=== PATIENT | female | born 1995 | race Caucasian/White ===

== ENCOUNTER → 2018-09-08 | Outpatient (CLI) | payer BC | LOC: COL.RAD 17:12 | DX: M25.571 Pain in right ankle and joints of right foot (principal) ==

== ENCOUNTER 2018-10-06 15:45 | Outpatient (RCR) | payer BC | END 2018-12-23 | disposition home or self-care (01) | LOC: MKS.ESL.PT | DX: M25.571 Pain in right ankle and joints of right foot (principal) ==

== ENCOUNTER 2020-09-18 21:58 | Emergency (ER) | payer BC ==
[~2020-09-18] VITALS: Ht 162.6 cm; Wt 72.7 kg
[2020-09-18 22:08] VITALS: TEMP 97.1
[2020-09-18 23:40] VITALS: BP 104/58; PULSE 71
== END 2020-09-18 23:42 | disposition home or self-care (01) ==
LOC: COL.ER 21:58
DX: T78.1XXA Other adverse food reactions, not elsewhere classified, initial encounter (principal)
CPT/HCPCS: J1200; J2930; J7030

== ENCOUNTER → 2023-09-13 | Outpatient (CLI) | payer BC ==
[~2023-09-13] MED LIST: Iohexol 300 - 100 ML VIAL IV ONE; NS 100 ML IV SCH
[2023-09-13 15:52] LABS: BASO # 0.1 K/mm3 (0.0-0.2); BASO % 0.5 % (0.0-2.0); EOS # 0.5 K/mm3 (0.0-0.7); EOS % 5.7 % (0.0-4.0); GRAN # 5.8 K/mm3 (1.4-6.5); GRAN % 60.6 % (42.2-75.2); HEMATOCRIT 42.4 % (37.0-47.0); HEMOGLOBIN 14.7 g/dl (12.5-16.0); LYMPH # 2.5 K/mm3 (1.2-3.4); LYMPH % 25.9 % (20.0-51.0); MEAN CELL VOLUME 89 fl (80.0-100.0); MEAN CORPUSCULAR HEMOGLOBIN 31 pg (27-31); MEAN CORPUSCULAR HGB CONC 35 g/dl (33.0-37.0); MONO # 0.7 K/mm3 (0.1-0.6); MONO % 7.2 % (1.7-9.3); PLATELET COUNT 491 K/mm3 (130-400); RED BLOOD COUNT 4.76 M/mm3 (4.10-5.30); REDCELL DISTRIBUTION WIDTH-CV 11.9 % (11.5-14.5)
[2023-09-13 16:21] LABS: BILIRUBIN,TOTAL 0.3 mg/dL (0.2-1.2); CALCIUM 9.5 mg/dL (8.4-10.2); CREATININE, serum 0.8 mg/dL (0.57-1.11); POTASSIUM 4.1 mEq/L (3.5-4.5); TOTAL PROTEIN 7.6 g/dl (6.2-8.1)
== END ==
LOC: COL.RAD 15:00 → COL.LAB 15:03
PROVIDERS: Physician Assistant Medical
DX: N83.01 Follicular cyst of right ovary (principal)
CPT/HCPCS: Q9967

== ENCOUNTER → 2023-09-25 | Outpatient (CLI) | payer BC | LOC: COL.RAD 09:22 | DX: N83.00 Follicular cyst of ovary, unspecified side (principal); R10.31 Right lower quadrant pain ==

== ENCOUNTER 2024-03-29 15:56 | Emergency (ER) | payer SELFPAY ==
[~2024-03-29] VITALS: Ht 162.6 cm; Wt 81.8 kg
[2024-03-29 16:04] VITALS: BP 117/83; TEMP 98.4
[2024-03-29] MEDS ORDERED: Tdap Vaccine 0.5 ML SYRINGE IM ONE (16:15)
[2024-03-29] MEDS ORDERED: AMOXICILLIN 8751 TAB PO (16:20)
[2024-03-29 16:30] VITALS: PULSE 82
== END 2024-03-29 16:30 | disposition home or self-care (01) ==
LOC: COL.ER 15:56
DX: S61.230A Puncture wound without foreign body of right index finger without damage to nail, initial encounter (principal); W55.01XA Bitten by cat, initial encounter